=== PATIENT | female | born 1980 | race Caucasian/White ===

== ENCOUNTER 2016-11-12 17:03 | Emergency (ER) | payer BC, OTHER ==
--- NOTE | 2016-11-12 17:43 | EDM.PDOC ---
ED HPI GENERAL MEDICAL PROBLEM - General Chief Complaint: Skin Complaint Stated Complaint: RASH BEHIND BACK Time Seen by Provider: 11/12/16 17:24 - History of Present Illness INITIAL COMMENTS - FREE TEXT/NARRATIVE: HISTORY AND PHYSICAL: History of present illness: The patient is a healthy 36-year-old female who presents with complaints of a rash on the right side of her back/flank area that started end of last week initially itchy and then more painful and she comes for evaluation. She says it is only located in that area and she has no systemic complaints of fever chills nausea vomiting chest pain or shortness of breath. She has not eaten any new foods are used any new products. Review of systems: As per history of present illness and below otherwise all systems reviewed and negative. Past medical history: As per history of present illness and as reviewed below otherwise noncontributory. Surgical history: As per history of present illness and as reviewed below otherwise noncontributory. Social history: No reported history of drug or alcohol abuse. Family history: As per history of present illness and as reviewed below otherwise noncontributory. Physical exam: Gen.: Well-developed well-nourished female who is nontoxic and vital signs have been reviewed by me. Patient speaks clearly and easily in the ED. HEENT: Atraumatic, normocephalic, , negative for conjunctival pallor or scleral icterus, mucous membranes moist, throat clear, neck supple, nontender, trachea midline. Lungs: Clear to auscultation, breath sounds equal bilaterally, chest nontender. Heart: S1S2, regular rate and rhythm no overt murmurs Abdomen: Soft, nondistended, nontender. NABS Skin: Normal turgor no evidence of any lesions or rashes with the exception of the right posterior flank area in the region of dermatomes T8 and T9 when there are scattered scab-like areas mixed with vesicular lesions with a base of erythema. There is no discrete weeping or drainage from this area and no swelling. Genitourinary: Deferred. Rectal: Deferred. Extremities: Atraumatic, negative for cords or calf pain. Neurovascular unremarkable. Neuro: Awake, alert, oriented. Cranial nerves II through XII unremarkable. Cerebellum unremarkable. Motor and sensory unremarkable throughout. Exam nonfocal. Diagnostics: [] Therapeutics: [] Impression: Herpes zoster thoracic flank Definitive disposition and diagnosis as appropriate pending reevaluation and review of above. Right Middle Back Pain Score (Numeric/FACES): 3 - Related Data Allergies Allergy/AdvReac Type Severity Reaction Status Date / Time No Known Allergies Allergy Verified 06/15/13 13:53 Home Meds: Home Meds . [No Known Home Meds] 11/12/16 [History] Past Medical History - Past Health History Medical/Surgical History: Denies Medical/Surgical History Social & Family History - Tobacco Use Smoking Status *Q: Never Smoker Second Hand Smoke Exposure: No - Caffeine Use Caffeine Use: Reports: Soda - Recreational Drug Use Recreational Drug Use: No ED ROS GENERAL - Review of Systems Review Of Systems: ROS reveals no pertinent complaints other than HPI. ED EXAM, SKIN/RASH Exam: See Below (see dictation) Course - Vital Signs Last Recorded V/S: Last Vital Signs Temp 36.8 C 11/12/16 17:22 Pulse 73 11/12/16 17:22 Resp 18 11/12/16 17:22 BP 119/73 11/12/16 17:22 Pulse Ox 97 11/12/16 17:22 Departure - Departure Time of Disposition: 17:42 Disposition: Home, Self-Care 01 Condition: Good Clinical Impression: Zoster Qualifiers: Herpes zoster complications: without complications Qualified Code(s): B02.9 - Zoster without complications - Discharge Information Referrals: PCP,None [Primary Care Provider] - Additional Instructions: The following information is given to patients seen in the emergency department who are being discharged to home. This information is to outline your options for follow-up care. We provide all patients seen in our emergency department with a follow-up referral. The need for follow-up, as well as the timing and circumstances, are variable depending upon the specifics of your emergency department visit. If you don't have a primary care physician on staff, we will provide you with a referral. We always advise you to contact your personal physician following an emergency department visit to inform them of the circumstance of the visit and for follow-up with them and/or the need for any referrals to a consulting specialist. The emergency department will also refer you to a specialist when appropriate. This referral assures that you have the opportunity for followup care with a specialist. All of these measure are taken in an effort to provide you with optimal care, which includes your followup. Under all circumstances we always encourage you to contact your private physician who remains a resource for coordinating your care. When calling for followup care, please make the office aware that this follow-up is from your recent emergency room visit. If for any reason you are refused follow-up, please contact the [facility] emergency department at and ask to speak to the emergency department charge nurse. [facility] Primary care- Internal Medicine and Family [place] [phone] Please use [id number] Benadryl or hydrocortisone cream/Benadryl cream to the area for any itching. Please take the antiviral medication you have prescribed until your finished. Please follow-up with your family doctor the next few days for reevaluation and care and return to the ER as needed and as discussed. Please avoid contact with small children women immunocompromised people for the elderly until all the areas have scabbed over.
[2016-11-12 18:09] VITALS: BP 106/67
== END 2016-11-12 18:06 | disposition home or self-care (01) ==
LOC: MW.ED 17:03
DX: B02.9 Zoster without complications (principal)
CPT/HCPCS: 99282

== ENCOUNTER 2018-10-02 19:54 | Emergency (ER) | payer OTHER ==
[2018-10-02] MEDS ORDERED: Ketorolac 60 MG/2 ML SDV IM ONE (20:12)
--- NOTE | 2018-10-02 20:37 | EDM.PDOC ---
ED HPI GENERAL MEDICAL PROBLEM - General Chief Complaint: Upper Extremity Injury/Pain Stated Complaint: PT HAS LT SHOULDER PAIN Time Seen by Provider: 10/02/18 20:08 - History of Present Illness INITIAL COMMENTS - FREE TEXT/NARRATIVE: HISTORY AND PHYSICAL: History of present illness: Patient 38-year-old female presents with concern of left shoulder and elbow pain this is without associated trauma this came on somewhat abruptly she denies any neck pain fever chills nausea vomiting or any other concern Review of systems: As per history of present illness and below otherwise all systems reviewed and negative. Past medical history: As per history of present illness and as reviewed below otherwise noncontributory. Surgical history: As per history of present illness and as reviewed below otherwise noncontributory. Social history: No reported history of drug or alcohol abuse. Family history: As per history of present illness and as reviewed below otherwise noncontributory. Physical exam: HEENT: Atraumatic, normocephalic, pupils reactive, negative for conjunctival pallor or scleral icterus, mucous membranes moist, throat clear, neck supple, nontender, trachea midline. Lungs: Clear to auscultation, breath sounds equal bilaterally, chest nontender. Heart: S1S2, regular, negative for clicks, rubs, or JVD. Abdomen: Soft, nondistended, nontender. Negative for masses or hepatosplenomegaly. Negative for costovertebral tenderness. Pelvis: Stable nontender. Genitourinary: Deferred. Rectal: Deferred. Extremities: Atraumatic, full range of motion okra palpitations no point tenderness EMS neurovascular exam are unremarkable throughout Neuro: Awake, alert, oriented. Cranial nerves II through XII unremarkable. Cerebellum unremarkable. Motor and sensory unremarkable throughout. Exam nonfocal. Diagnostics: X-ray left shoulder/elbow Therapeutics: Toradol 60 mg IM sling Impression: #1 left shoulder/elbow pain etiology to be determined Definitive disposition and diagnosis as appropriate pending reevaluation and review of above. Left Shoulder Pain Score (Numeric/FACES): 8 - Related Data Allergies Allergy/AdvReac Type Severity Reaction Status Date / Time No Known Allergies Allergy Verified 10/02/18 20:12 Home Meds: Home Meds . 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 Musculoskeletal History: Reports: None Neurological History: Reports: None Psychiatric History: Reports: None Endocrine/Metabolic History: Reports: None Hematologic History: Reports: None Immunologic History: Reports: None Oncologic (Cancer) History: Reports: None Dermatologic History: Reports: None - Infectious Disease History Infectious Disease History: Reports: None - Past Surgical History Head Surgeries/Procedures: Reports: None Social & Family History - Tobacco Use Smoking Status *Q: Never Smoker - Caffeine Use Caffeine Use: Reports: None - Recreational Drug Use Recreational Drug Use: No Review of Systems - Review of Systems Review Of Systems: ROS reveals no pertinent complaints other than HPI. ED EXAM, GENERAL - Physical Exam Exam: See Below (See dictation) Course - Vital Signs Last Recorded V/S: Last Vital Signs Temp 36.1 C 10/02/18 20:06 Pulse 97 10/02/18 20:06 Resp BP 120/77 10/02/18 20:06 Pulse Ox 97 10/02/18 20:06 - Orders/Labs/Meds Orders: Active Orders 24 hr Category Date Time Status Elbow 2V Lt [CR] Stat Exams 10/02/18 20:11 Ordered Shoulder Comp Lt [CR] Stat Exams 10/02/18 20:11 Ordered Meds: Medications Discontinued Medications Generic Name Dose Route Start Last Admin Trade Name Freq PRN Reason Stop Dose Admin Ketorolac Tromethamine 60 mg 10/02/18 20:12 Toradol IM 10/02/18 20:13 ONETIME ONE Departure - Departure Time of Disposition: 20:36 Disposition: Home, Self-Care 01 Condition: Good Clinical Impression: Shoulder pain, Elbow pain - Discharge Information Referrals: PCP,None [Primary Care Provider] - Additional Instructions: The following information is given to patients seen in the emergency department who are being discharged to home. This information is to outline your options for follow-up care. We provide all patients seen in our emergency department with a follow-up referral. The need for follow-up, as well as the timing and circumstances, are variable depending upon the specifics of your emergency department visit. If you don't have a primary care physician on staff, we will provide you with a referral. We always advise you to contact your personal physician following an emergency department visit to inform them of the circumstance of the visit and for follow-up with them and/or the need for any referrals to a consulting specialist. The emergency department will also refer you to a specialist when appropriate. This referral assures that you have the opportunity for followup care with a specialist. All of these measure are taken in an effort to provide you with optimal care, which includes your followup. Under all circumstances we always encourage you to contact your private physician who remains a resource for coordinating your care. When calling for followup care, please make the office aware that this follow-up is from your recent emergency room visit. If for any reason you are refused follow-up, please contact the [facility] emergency department at and asked to speak to the emergency department charge nurse. [facility] Special[facility] - [facility] [address], [address] [place] [address] Sling as directed Motrin/Tylenol as directed follow-up orthopedic surgery above return as needed as discussed - My Orders Last 24 Hours: My Active Orders 10/02/18 20:11 Elbow 2V Lt [CR] Stat Shoulder Comp Lt [CR] Stat - Assessment/Plan Last 24 Hours: My Active Orders 10/02/18 20:11 Elbow 2V Lt [CR] Stat Shoulder Comp Lt [CR] Stat
[2018-10-02 21:20] VITALS: BP 111/74
--- NOTE | 2018-10-02 21:23 | CR ---
Clinical INDICATION: Pain without injury. FINDINGS: Now bone or joint abnormality is identified. There is no fracture or dislocation. IMPRESSION: Negative study. Dictated by Nitish Dumont MD @ Oct 02 2018 9:22PM Signed by Dr. Nitish Dumont @ Oct 02 2018 9:22PM
--- NOTE | 2018-10-02 21:23 | CR ---
Clinical INDICATION: Pain without injury. FINDINGS: No bone or joint abnormality is identified. There is no fracture, dislocation or joint effusion. IMPRESSION: Negative study. Dictated by Nitish Dumont MD @ Oct 02 2018 9:21PM Signed by Dr. Nitish Dumont @ Oct 02 2018 9:21PM
== END 2018-10-02 21:17 | disposition home or self-care (01) ==
LOC: MW.ED 19:54
DX: M25.512 Pain in left shoulder (principal); M25.522 Pain in left elbow
CPT/HCPCS: 73030; 73070; 96372; 99283; J1885